=== PATIENT | female | born 1945 | race African-American/Black ===

== ENCOUNTER 2019-05-26 11:16 | Emergency (ER) | payer MEDICARE, BC ==
[~2019-05-26] VITALS: Ht 167.6 cm; Wt 48.0 kg
[~2019-05-26 11:16] MED LIST: ACET-2853 PO; AMLO10TA80 PO; AMLO1TAB14; AP50; CLON0.2T12; CLOP75TA4 PO; METO-411 PO; METO100T3; MINO10TA PO; SIMV20TA2 PO
[2019-05-26] MEDS ORDERED: POLYETHYLENE GLYCOL 3350 (17GM) 1 DOSE PACK PO ONE (13:15)
[2019-05-26] MEDS ORDERED: BISACODYL 10MG SUPP PR ONE (13:15)
[2019-05-26 13:46] LABS: CHLORIDE 104 mEq/L (98-107)
[2019-05-26 13:49] LABS: BASOPHILS % 2.4 % (0.0-2.0); EOSINOPHILS % 4.1 % (0.0-5.0); HEMATOCRIT. 33.6 % (36.0-48.0); HEMOGLOBIN. 10.9 g/dL (12.0-16.0); LYMPHOCYTES % 12.4 % (20.0-50.0); MEAN CORPUSCULAR HEMOGLOBIN 28.2 pg (28.0-32.0); MEAN CORPUSCULAR VOLUME 86.9 fL (81.0-99.0); MEAN PLATELET VOLUME 7.4 fl (7.4-10.4); MONOCYTES % 3.7 % (2.0-8.0); NEUTROPHILS % 77.4 % (40.0-76.0); PLATELET 329 x1000/uL (130-400); RED BLOOD CELL COUNT 3.86 mill/uL (4.2-5.4); RED CELL DISTRIBUTION WIDTH 17.5 % (11.6-14.6)
[2019-05-26 19:28] VITALS: BP 153/77
== END 2019-05-26 19:28 ==
LOC: ER 11:16
DX: K59.00 Constipation, unspecified (principal); K56.7 Ileus, unspecified; E87.8 Other disorders of electrolyte and fluid balance, not elsewhere classified; I12.9 Hypertensive chronic kidney disease with stage 1 through stage 4 chronic kidney disease, or unspecified chronic kidney disease; E11.22 Type 2 diabetes mellitus with diabetic chronic kidney disease; N18.9 Chronic kidney disease, unspecified; E05.90 Thyrotoxicosis, unspecified without thyrotoxic crisis or storm; Z99.2 Dependence on renal dialysis; Z79.899 Other long term (current) drug therapy; Z88.8 Allergy status to other drugs, medicaments and biological substances
CPT/HCPCS: 36415; 71045; 74018; 99284

== ENCOUNTER 2019-08-01 10:47 | Inpatient (IN) | payer MEDICARE, BC ==
[~2019-08-01] VITALS: Ht 162.6 cm; Wt 64.4 kg
[~2019-08-01 10:47] MED LIST changes: -ACET-2853 PO; +ACET650T37 PO
[2019-08-01 12:45] LABS: CHLORIDE 102 mEq/L (98-107)
[2019-08-01 12:49] LABS: HEMATOCRIT. 32.9 % (36.0-48.0); HEMOGLOBIN. 10.7 g/dL (12.0-16.0); MEAN CORPUSCULAR VOLUME 89.3 fL (81.0-99.0); MEAN PLATELET VOLUME 8.2 fl (7.4-10.4); PLATELET 281 x1000/uL (130-400); RED BLOOD CELL COUNT 3.69 mill/uL (4.2-5.4); RED CELL DISTRIBUTION WIDTH 16.6 % (11.6-14.6)
[2019-08-01 14:23] LABS: PLATELET ESTIMATE NORMAL
[2019-08-01] MEDS ORDERED: HYDROCODONE/ACETAMINOPHEN 5/325MG TABLET PO PRN (18:45)
[2019-08-01] MEDS ORDERED: DOCUSATE SODIUM 100MG CAPSULE PO PRN (18:45)
[2019-08-01] MEDS ORDERED: LORAZEPAM 2MG/ML CPJ IV PRN (18:45)
[2019-08-01] MEDS ORDERED: DIPHENHYDRAMINE 50MG/ML VIAL IV PRN (18:45)
[2019-08-01] MEDS ORDERED: ONDANSETRON HCL 4MG/2ML INJ IV PRN (18:45)
[2019-08-01] MEDS ORDERED: GUAIFENESIN 200MG/10ML SUGAR FREE UDC PO PRN (18:45)
[2019-08-01] MEDS ORDERED: ACETAMINOPHEN 325MG TABLET PO PRN (18:45)
[2019-08-01] MEDS ORDERED: MORPHINE SULFATE 2 MG/ML CPJ (NOT FOR IM USE) IV PRN (18:45)
[2019-08-01] MEDS ORDERED: ENOXAPARIN 40MG/0.4ML SYR SUBCUT SCH (18:45)
[2019-08-01] MEDS ORDERED: MAGNESIUM/ALUMINUM HYDROXIDE/SIMETHICONE 30ML UDC PO PRN (18:45)
[2019-08-01] MEDS ORDERED: NA PHOS,M-B/NA PHOS,DI-BA ENEMA 118ML PR PRN (18:45)
[2019-08-01] MEDS ORDERED: IPRATROPIUM/ALBUTEROL 0.5-3(2.5)MG/3ML NEB NEB PRN (18:45)
[2019-08-01] MEDS: CLONIDINE 0.1MG TABLET PO PRN (20:40)
[2019-08-02 04:50] LABS: BASOPHILS % 2.3 % (0.0-2.0); EOSINOPHILS % 6.1 % (0.0-5.0); HEMATOCRIT. 30.1 % (36.0-48.0); HEMOGLOBIN. 9.9 g/dL (12.0-16.0); LYMPHOCYTES % 24.4 % (20.0-50.0); MEAN CORPUSCULAR HEMOGLOBIN 29.2 pg (28.0-32.0); MEAN CORPUSCULAR VOLUME 88.7 fL (81.0-99.0); MEAN PLATELET VOLUME 7.8 fl (7.4-10.4); MONOCYTES % 9.5 % (2.0-8.0); NEUTROPHILS % 57.7 % (40.0-76.0); PLATELET 275 x1000/uL (130-400); RED BLOOD CELL COUNT 3.39 mill/uL (4.2-5.4); RED CELL DISTRIBUTION WIDTH 16.5 % (11.6-14.6)
[2019-08-02 05:20] LABS: CHLORIDE 105 mEq/L (98-107)
[2019-08-02 05:30] LABS: LDL CHOLESTEROL 101 mg/dL (5-100)
[2019-08-02 05:31] LABS: HDL CHOLESTEROL 70 mg/dL (40-59); T4 FREE 0.71 ng/dL (0.76-1.46)
[2019-08-02 10:00] VITALS: BP_SYST 153; BP_SYST 183; BP_DIAS 84
[2019-08-02] MEDS: ENOXAPARIN 30MG/0.3ML SYR SUBCUT SCH (10:19)
[2019-08-02] MEDS: ASPIRIN 81MG EC TABLET PO SCH (10:19)
[2019-08-02] MEDS: CLONIDINE 0.1MG TABLET PO PRN (10:19)
[2019-08-02] MEDS: CLOPIDOGREL 75MG TABLET PO SCH (11:55)
[2019-08-02 12:00] VITALS: BP 171/84
[2019-08-02] MEDS: BLOOD SUGAR DIAGNOSTIC STRIP TEST SCH ×3 (12:40→21:53)
[2019-08-02] MEDS ORDERED: DEXTROSE 50% WATER 50ML SYRINGE IV PRN (12:45)
[2019-08-02] MEDS: INSULIN LISPRO 100 UNITS/ML SUBCUT SCH ×3 (13:10→21:00)
[2019-08-02] MEDS: AMLODIPINE 10MG TABLET PO SCH (15:24)
[2019-08-02] MEDS: CLONIDINE 0.1MG TABLET PO SCH ×2 (15:24→22:05)
[2019-08-02] MEDS ORDERED: NEPVIT MT (15:48)
[2019-08-02] MEDS ORDERED: CALC667C MT (15:48)
[2019-08-02] MEDS ORDERED: DOXE25CA3 PO (15:48)
[2019-08-02] MEDS ORDERED: DOCU-138 MT (15:48)
[2019-08-02] MEDS ORDERED: CINA60 PO (15:48)
[2019-08-02] MEDS ORDERED: DILT60TA35 MT (15:48)
[2019-08-02] MEDS ORDERED: IPRA3AMP31 NEB (15:48)
[2019-08-02 16:00] VITALS: BP 147/69
[2019-08-02 16:54] LABS: CREATINE KINASE MB FRACTION 1.6 ng/mL (0.5-3.6)
[2019-08-02 20:15] VITALS: BP 153/70
[2019-08-02] MEDS ORDERED: EPOETIN ALFA 4000UNITS/ML VIAL SUBCUT SCH (21:00)
[2019-08-02] MEDS: MINOXIDIL 2.5MG TABLET PO SCH (22:05)
[2019-08-02] MEDS: METOPROLOL TARTRATE 100MG TABLET PO SCH (22:05)
[2019-08-02 22:15] VITALS: BP 140/73
[2019-08-03] VITALS: BP 140/73
[2019-08-03 00:46] LABS: CREATINE KINASE MB FRACTION 1.7 ng/mL (0.5-3.6)
[2019-08-03 04:58] VITALS: BP 153/74
[2019-08-03] MEDS: CLONIDINE 0.1MG TABLET PO SCH ×3 (05:32→20:55)
[2019-08-03 07:03] LABS: CREATINE KINASE MB FRACTION 1.4 ng/mL (0.5-3.6)
[2019-08-03] MEDS: BLOOD SUGAR DIAGNOSTIC STRIP TEST SCH ×4 (07:40→20:57)
[2019-08-03 08:00] VITALS: BP 100/55
[2019-08-03] MEDS: INSULIN LISPRO 100 UNITS/ML SUBCUT SCH ×4 (08:10→20:57)
[2019-08-03] MEDS: AMLODIPINE 10MG TABLET PO SCH (09:00)
[2019-08-03] MEDS: METOPROLOL TARTRATE 100MG TABLET PO SCH (09:00)
[2019-08-03] MEDS: MINOXIDIL 2.5MG TABLET PO SCH ×2 (09:00→20:53)
[2019-08-03] MEDS: ENOXAPARIN 30MG/0.3ML SYR SUBCUT SCH (09:00)
[2019-08-03] MEDS: ASPIRIN 81MG EC TABLET PO SCH (09:21)
[2019-08-03] MEDS: CLOPIDOGREL 75MG TABLET PO SCH (09:21)
[2019-08-03 12:00] VITALS: BP 133/61
[2019-08-03 16:00] VITALS: BP 126/66
[2019-08-03 20:00] VITALS: BP 130/62
[2019-08-03] MEDS: METOPROLOL TARTRATE 50MG TABLET PO SCH (20:53)
[2019-08-04] VITALS: BP 147/70
[2019-08-04 04:00] VITALS: BP 132/78
[2019-08-04] MEDS: CLONIDINE 0.1MG TABLET PO SCH (05:57)
[2019-08-04] MEDS: BLOOD SUGAR DIAGNOSTIC STRIP TEST SCH (07:01)
[2019-08-04] MEDS: INSULIN LISPRO 100 UNITS/ML SUBCUT SCH (08:10)
[2019-08-04] MEDS: ENOXAPARIN 30MG/0.3ML SYR SUBCUT SCH (09:00)
[2019-08-04] MEDS: AMLODIPINE 10MG TABLET PO SCH (09:16)
[2019-08-04] MEDS: MINOXIDIL 2.5MG TABLET PO SCH (09:17)
[2019-08-04] MEDS: ASPIRIN 81MG EC TABLET PO SCH (09:17)
[2019-08-04] MEDS: METOPROLOL TARTRATE 50MG TABLET PO SCH (09:17)
[2019-08-04] MEDS: CLOPIDOGREL 75MG TABLET PO SCH (09:17)
[2019-08-04 11:48] VITALS: BP 127/61
== END 2019-08-04 12:50 | DRG 70 ==
LOC: ER 11:04 → 7WST 15:38 → EDBEDREQ 19:30 → ENRESERV 20:07 → CANRESERV 20:07 → ENRESERV 08-02 07:50
PROVIDERS: ADMIT Internal Medicine; ATTEND Internal Medicine
PROC: 4A10X4Z Monitoring of Central Nervous Electrical Activity, External Approach (ICD-10-PCS; principal; 2019-08-03)
PROC: 5A1D70Z Performance of Urinary Filtration, Intermittent, Less than 6 Hours Per Day (ICD-10-PCS; 2019-08-03)
DX: G93.41 Metabolic encephalopathy (principal); N18.6 End stage renal disease; I13.2 Hypertensive heart and chronic kidney disease with heart failure and with stage 5 chronic kidney disease, or end stage renal disease; E46 Unspecified protein-calorie malnutrition; G90.8 Other disorders of autonomic nervous system; E11.22 Type 2 diabetes mellitus with diabetic chronic kidney disease; I48.0 Paroxysmal atrial fibrillation; E05.90 Thyrotoxicosis, unspecified without thyrotoxic crisis or storm; R51 Headache; D64.9 Anemia, unspecified; E78.5 Hyperlipidemia, unspecified; I50.9 Heart failure, unspecified; Z99.2 Dependence on renal dialysis; Z87.891 Personal history of nicotine dependence; Z79.02 Long term (current) use of antithrombotics/antiplatelets; I69.30 Unspecified sequelae of cerebral infarction; Z88.8 Allergy status to other drugs, medicaments and biological substances; Z68.24 Body mass index [BMI] 24.0-24.9, adult; Z79.899 Other long term (current) drug therapy
CPT/HCPCS: 36415; 71045; 80048; 80053; 80061; 82550; 82553; 82962; 83036; 83735; 83880; 84439; 84443; 84484; 85025; 85379; 93005; 93306; 93970; 99285; J0885; J1650; J2405